=== PATIENT | female | born 1945 | race Caucasian/White ===

== ENCOUNTER 2016-03-26 16:25 | Inpatient (IN) | payer MEDICARE, OTHER ==
[2016-03-11 10:45] VITALS: BMI 42.4
[2016-03-11 11:23] VITALS: BP_SYST 128; RESP 20; TEMP 99
[~2016-03-26] VITALS: Ht 161.5 cm; Wt 110.7 kg
[2016-05-16 12:15] VITALS: BMI 42.4
[2016-05-16 12:24] VITALS: BP_SYST 126; RESP 20; TEMP 98.4
[2016-05-20 10:43] VITALS: BMI 42.4
[2016-05-20 10:44] VITALS: BP_SYST 126; RESP 20; TEMP 98.4
[2016-05-21] VITALS (29 sets, daily range): BP systolic 112–156; RESP 16–22; TEMP 97.3–98.9; Ht 161.5 cm; Wt 110.7 kg
[2016-05-21] MEDS ORDERED: ROPIVACAINE 0.5% 134 MG, EPINEPHrine 1:1,000 0.2 MG, KETOROLAC INJ 30 MG, HYDROMORPHONE... SUBQ ONE ×4 (07:45)
[2016-05-21] MEDS ORDERED: CEFAZOLIN 2,000 MG in SODIUM CHLORIDE 0.9% 100 ML IV ONE (07:45)
[2016-05-21] MEDS ORDERED: LIDOCAINE 1% BUFFERED 1 ML SYR INTRADERM PRN (07:55)
[2016-05-21] MEDS ORDERED: MIDAZOLAM 2 MG/2 ML INJ IV ONE ×2 (07:55→09:35)
[2016-05-21] MEDS ORDERED: GLYCOPYRROLATE 0.2 MG/ML VIAL IV ONE ×2 (07:55→13:30)
[2016-05-21] MEDS ORDERED: LACT RINGERS 1,000 ML IV SCH ×2 (07:55→12:15)
[2016-05-21] MEDS ORDERED: MIDAZOLAM 2 MG/2 ML INJ ONE (09:10)
[2016-05-21] MEDS ORDERED: ROPIVACAINE 5 MG/ML 30 ML EPIDURAL ONE (10:01)
[2016-05-21] MEDS ORDERED: OXYCODONE 5 MG TAB PO PRN (10:45)
[2016-05-21] MEDS ORDERED: ONDANSETRON 4 MG VIAL IV PRN ×2 (10:45→12:15)
[2016-05-21] MEDS ORDERED: MEPERIDINE 25 MG/ML IV PRN (10:45)
[2016-05-21] MEDS ORDERED: MORPHINE 4 MG/ML SYR IV PRN (10:45)
[2016-05-21] MEDS ORDERED: MORPHINE 2 MG/ML SYR IV PRN (10:45)
[2016-05-21] MEDS: DILAUDID 1 MG/ML AMP IV PRN ×2 (12:02→12:29)
[2016-05-21] MEDS ORDERED: DIPHENHYDRAMINE 25 MG CAP PO PRN (12:15)
[2016-05-21] MEDS ORDERED: ACETAMINOPHEN 325 MG TAB PO PRN (12:15)
[2016-05-21] MEDS ORDERED: BACITRACIN 50,000 UNITS INJ IRRIG ONE (13:24)
[2016-05-21] MEDS ORDERED: NEOSTIGMINE 10 MG/10 ML VIAL IV ONE (13:30)
[2016-05-21] MEDS ORDERED: LIDOCAINE 2% SYR 5 ML IV ONE (13:30)
[2016-05-21] MEDS ORDERED: PROPOFOL 20 ML PER ML IV ONE (13:30)
[2016-05-21] MEDS ORDERED: FENTANYL 100 MCG/2 ML AMP IV ONE (13:30)
[2016-05-21] MEDS ORDERED: ONDANSETRON 4 MG VIAL IV PUSH ONE (13:30)
[2016-05-21] MEDS ORDERED: DEXAMETHASONE 4 MG/ML VIAL IV ONE (13:30)
[2016-05-21] MEDS ORDERED: ACETAMINOPHEN 1,000 MG/100 ML IV ONE (13:30)
[2016-05-21] MEDS ORDERED: ROCURONIUM 50 MG VIAL IV ONE (13:30)
[2016-05-21] MEDS: LEVOTHYROXINE 0.125 MG TAB PO SCH (14:26)
[2016-05-21] MEDS: POLYETHYLENE GLYCOL 17 GM PACKET PO SCH (15:13)
[2016-05-21] MEDS: SENNA 8.6 MG TAB PO SCH ×2 (15:13→20:51)
[2016-05-21] MEDS: CEFAZOLIN 2,000 MG in SODIUM CHLORIDE 0.9% 100 ML IV SCH ×2 (15:16→20:56)
[2016-05-21] MEDS: PANTOPRAZOLE 40 MG TAB PO SCH (15:26)
[2016-05-21] MEDS: DOCUSATE SOD 100 MG CAP PO SCH (20:51)
[2016-05-21] MEDS: TEMAZEPAM 15 MG CAP PO PRN (23:50)
[2016-05-22] VITALS (8 sets, daily range): BP systolic 109–148; RESP 16–20; TEMP 97.5–98.6
[2016-05-22] MEDS: CEFAZOLIN 2,000 MG in SODIUM CHLORIDE 0.9% 100 ML IV SCH ×2 (05:21→10:04)
[2016-05-22] MEDS: FONDAPARINUX 2.5 MG SYR SUBQ SCH (05:22)
[2016-05-22] MEDS: PANTOPRAZOLE 40 MG TAB PO SCH ×2 (06:26→16:22)
[2016-05-22] MEDS: LEVOTHYROXINE 0.125 MG TAB PO SCH (06:26)
[2016-05-22] MEDS: POLYETHYLENE GLYCOL 17 GM PACKET PO SCH (08:25)
[2016-05-22] MEDS: MAG HYDROX 30 ML UDC PO SCH (08:25)
[2016-05-22] MEDS: DOCUSATE SOD 100 MG CAP PO SCH ×2 (08:25→21:13)
[2016-05-22] MEDS: SENNA 8.6 MG TAB PO SCH ×2 (08:25→21:13)
[2016-05-22] MEDS: KETOROLAC 30 MG/ML VIAL IV PRN ×2 (10:19→16:29)
[2016-05-22] MEDS ORDERED: BISACODYL 10 MG SUPP RECTAL PRN (14:35)
[2016-05-22] MEDS ORDERED: FLEET ENEMA 132 ML BTL RECTAL PRN (14:35)
[2016-05-22] MEDS: LEVOFLOXACIN 500 MG/100 ML 100 ML IV SCH (21:13)
[2016-05-22] MEDS: TEMAZEPAM 15 MG CAP PO PRN (22:34)
[2016-05-23] VITALS (8 sets, daily range): BP systolic 127–153; RESP 16–20; TEMP 98.2–98.8
[2016-05-23] MEDS: LEVOTHYROXINE 0.125 MG TAB PO SCH (05:07)
[2016-05-23] MEDS: PANTOPRAZOLE 40 MG TAB PO SCH ×2 (05:07→16:23)
[2016-05-23] MEDS: FONDAPARINUX 2.5 MG SYR SUBQ SCH (05:12)
[2016-05-23] MEDS: MAG HYDROX 30 ML UDC PO SCH (08:22)
[2016-05-23] MEDS: DOCUSATE SOD 100 MG CAP PO SCH ×2 (08:22→20:57)
[2016-05-23] MEDS: POLYETHYLENE GLYCOL 17 GM PACKET PO SCH (08:22)
[2016-05-23] MEDS: SENNA 8.6 MG TAB PO SCH ×2 (08:22→20:57)
[2016-05-23] MEDS: LEVOFLOXACIN 500 MG/100 ML 100 ML IV SCH (08:25)
[2016-05-23] MEDS: BETAMETH/CLOTRIM CR 15 GM TOPICAL SCH (20:57)
[2016-05-23] MEDS: TEMAZEPAM 15 MG CAP PO PRN (23:16)
[2016-05-24 04:12] VITALS: BP_SYST 121; TEMP 98.5
[2016-05-24 04:13] VITALS: RESP 20
[2016-05-24] MEDS: PANTOPRAZOLE 40 MG TAB PO SCH (06:00)
[2016-05-24] MEDS: LEVOTHYROXINE 0.125 MG TAB PO SCH (06:00)
[2016-05-24] MEDS: FONDAPARINUX 2.5 MG SYR SUBQ SCH (06:00)
[2016-05-24 07:42] VITALS: BP_SYST 138; RESP 16; TEMP 98.3
[2016-05-24] MEDS: BETAMETH/CLOTRIM CR 15 GM TOPICAL SCH (08:17)
[2016-05-24] MEDS: MAG HYDROX 30 ML UDC PO SCH (08:17)
[2016-05-24] MEDS: SENNA 8.6 MG TAB PO SCH (08:17)
[2016-05-24] MEDS: POLYETHYLENE GLYCOL 17 GM PACKET PO SCH (08:17)
[2016-05-24] MEDS: DOCUSATE SOD 100 MG CAP PO SCH (08:17)
[2016-05-24] MEDS: LEVOFLOXACIN 500 MG/100 ML 100 ML IV SCH (08:17)
[2016-05-24 11:35] VITALS: BP_SYST 129; RESP 16; TEMP 98.3
[2016-05-24 12:57] VITALS: BP_SYST 129; RESP 16; TEMP 98.3
== END 2016-05-24 14:52 | disposition home health service (06) | DRG 470 ==
LOC: SDS 05-21 07:37 → 2NO 05-21 12:45
PROVIDERS: ADMIT Internal Medicine; ATTEND Internal Medicine
PROC: 3E0T3CZ (ICD-10-PCS; 2016-05-21)
PROC: 0SRD0J9 Replacement of Left Knee Joint with Synthetic Substitute, Cemented, Open Approach (ICD-10-PCS; principal; 2016-05-21 09:04)
DX: M17.12 Unilateral primary osteoarthritis, left knee (principal); Z68.41 Body mass index [BMI] 40.0-44.9, adult; E03.9 Hypothyroidism, unspecified; N32.81 Overactive bladder; Z87.891 Personal history of nicotine dependence; E66.9 Obesity, unspecified; Z98.84 Bariatric surgery status; D72.829 Elevated white blood cell count, unspecified
CPT/HCPCS: 36415; 80048; 80053; 81001; 84439; 84443; 85025; 85610; 85730; 86850; 86900; 86901; 87088; 94762; 94799